=== PATIENT | male | born 1980 | race Caucasian/White ===

== ENCOUNTER 2017-07-25 17:13 | Emergency (ER) ==
[2017-07-25 17:26] VITALS: BP 102/70; TEMP 98.3; BMI 25.0
[2017-07-25] MEDS ORDERED: BENADRYL IM STA (17:30)
[2017-07-25] MEDS ORDERED: DECADRON 4 MG/ML SDV IM STA (17:30)
--- NOTE | 2017-07-25 17:33 | ED.PDOC ---
General ED Provider: Dr. GRETA CIFUENTES Chief Complaint: Rash Stated Complaint: RASH Time Seen by Physician: 17:31 Mode of Arrival: Walk-In Information Source: Patient Primary Care Provider: JAY SINGLETON Nursing and Triage Documentation Reviewed and Agree: Yes (NO S.O.B) Skin Complaint Exam - Skin Rash/Itching Complaint/Exam Onset/Duration: TODAT PRIOR TO ARRIVAL . Symptoms Are: Still present (MILD SEE PHOTOS) Initial Severity: Moderate Current Severity: Mild Location: FACE, CHEST Potential Exposures: Reports: Unknown Aggravating: Reports: None Alleviating: Reports: None Associated Signs and Symptoms: Denies: Difficulty breathing, Fever, Chills Related History: Similar episode Skin Findings: Present: Urticaria Differential Diagnoses: Allergic Reaction Review of Systems - Review Of Systems Constitutional: Reports: No symptoms Eyes: Reports: No symptoms Ears, Nose, Mouth, Throat: Reports: No symptoms Respiratory: Reports: No symptoms Cardiac: Reports: No symptoms GI: Reports: No symptoms : Reports: No symptoms Musculoskeletal: Reports: No symptoms Skin: Reports: Rash Neurological: Reports: No symptoms Endocrine: Reports: No symptoms Hematologic/Lymphatic: Reports: No symptoms All Other Systems: Reviewed and Negative Past Medical History - Past Medical History Previously Healthy: No Endocrine: Reports: None Cardiovascular: Reports: None Respiratory: Reports: None Hematological: Reports: None Gastrointestinal: Reports: None Genitourinary: Reports: None Neuro/Psych: Reports: None Musculoskeletal: Reports: None Cancer: Reports: None - Surgical History General Surgical History: Reports: None - Family History Family History: Reports: None - Social History Smoking Status: Former smoker Hx Substance Use: No Alcohol Screening: None Physical Exam - Physical Exam Appearance: Well-appearing, No pain distress, Well-nourished Eyes: SABIHA, EOMI, Conjunctiva clear ENT: Ears normal, Nose normal, Oropharynx normal Respiratory: Airway patent, Breath sounds clear, Breath sounds equal, Respirations nonlabored Cardiovascular: RRR, Pulses normal, No rub, No murmur GI/: Soft, Nontender, No masses, Bowel sounds normal, No Organomegaly Musculoskeletal: Normal strength, ROM intact, No edema, No calf tenderness Skin: Warm, Dry (DIFFUSE FINE RASH FACE ,CHEST) Neurological: Sensation intact, Motor intact, Reflexes intact, Cranial nerves intact, Alert, Oriented Psychiatric: Affect appropriate, Mood appropriate Critical Care Note - Critical Care Note Total Time (mins): 0 Course - Course Orders, Labs, Meds: Orders Category Date Time Status Dexamethasone 4 mg/ml Inj [Decadron 4 mg/ml Sdv] MEDS 07/25/17 17:30 Stat 4 mg IM ONCE STA Diphenhydramine Inj [Benadryl] MEDS 07/25/17 17:30 Stat 25 mg IM ONCE STA Medications Discontinued Medications Generic Name Dose Route Start Last Admin Trade Name Joeyq PRN Reason Stop Dose Admin Dexamethasone Sodium Phosphate 4 mg 07/25/17 17:30 Decadron 4 Mg/Ml Sdv IM 07/25/17 17:31 ONCE STA Diphenhydramine HCl 25 mg 07/25/17 17:30 Benadryl IM 07/25/17 17:31 ONCE STA Vital Signs: Temp Pulse Resp BP Pulse Ox 07/25/17 17:15 98.3 F 94 H 20 102/70 95 Departure - Departure Time of Disposition: 17:33 Disposition: HOME SELF-CARE Discharge Problem: Pruritic rash Instructions: Allergies (ED), Urticaria (ED) Condition: Good Pt referred to PMD for follow-up: Yes Allergies/Adverse Reactions: Allergies No Known Drug Allergies Adverse Reaction (Verified 07/25/17 17:21) Home Medications: Ambulatory Orders Warfarin Sodium [Coumadin] 5 mg PO DAILY 03/19/14 Atorvastatin Calcium [Lipitor] 10 mg PO BEDTIME 02/05/15
== END 2017-07-25 18:10 | disposition home or self-care (01) ==
LOC: ED 17:13
DX: R21 Rash and other nonspecific skin eruption (principal); L29.9 Pruritus, unspecified
CPT/HCPCS: 96372; 99282

== ENCOUNTER 2018-05-25 18:49 | Emergency (ER) ==
[2018-05-25 18:56] VITALS: BP 117/56; TEMP 98.3; BMI 26.4
[2018-05-25] MEDS ORDERED: TORADOL IM STA (19:13)
[2018-05-25] MEDS ORDERED: CORTISPORIN OTIC SUSP OT ONE (19:16)
--- NOTE | 2018-05-25 19:16 | ED.PDOC ---
General ED Provider: Dr. DELMI PANG Chief Complaint: Earache Stated Complaint: Left ear pain, no drainage. was swimming 2 days ago Time Seen by Physician: 19:14 Mode of Arrival: Walk-In Information Source: Patient Primary Care Provider: JAY SINGLETON Nursing and Triage Documentation Reviewed and Agree: Yes Does patient meet sepsis criteria?: No If yes, has appropriate treatment been initiated?: No System Inflammatory Response Syndrome: Not Applicable Sepsis Protocol: For patient's 13 years and over: Temp is 96.8 and below OR 101 and greater Pulse >90 BPM Resp >20/minute Acutely Altered Mental Status Are patient's symptoms suggestive of a new infection, such as: -Pneumonia -Skin, Soft Tissue -Endocarditis -UTI -Bone, Joint Infection -Implantable Device -Acute Abdominal Infection -Wound Infection -Meningitis -Blood Stream Catheter Infection -Unknown EENT Complaint Exam - Ear Complaint/Exam Symptoms Are: Still present Timing: Constant Initial Severity: Moderate Current Severity: Moderate Aggravating: Reports: None Alleviating: Reports: None Associated Signs and Symptoms: Denies: Ear trauma, Ear swelling, Discharge, Fever, Hearing loss, Bleeding, Sore throat, Headache, URI symptoms, Foreign body sensation, Rash, Pain to external ear, Pain to external face Ear Surgical History: None Vesicles to External Pinna: No Vesicles to Tragus: No TMJ Tenderness: None Mastoid Tenderness: None Tragal Tenderness: None External Canal: Normal Tympanic Membrane: Erythema, Bulging Differential Diagnoses: Otitis Externa, Otitis Media Review of Systems - Review Of Systems Constitutional: Reports: No symptoms Eyes: Reports: No symptoms Ears, Nose, Mouth, Throat: Reports: Ear pain Respiratory: Reports: No symptoms Cardiac: Reports: No symptoms GI: Reports: No symptoms : Reports: No symptoms Musculoskeletal: Reports: No symptoms Skin: Reports: No symptoms Neurological: Reports: No symptoms Endocrine: Reports: No symptoms Hematologic/Lymphatic: Reports: No symptoms All Other Systems: Reviewed and Negative Past Medical History - Past Medical History Previously Healthy: No Endocrine: Reports: None Cardiovascular: Reports: None Respiratory: Reports: None Hematological: Reports: None Gastrointestinal: Reports: None Genitourinary: Reports: None Neuro/Psych: Reports: None Musculoskeletal: Reports: None Cancer: Reports: None - Surgical History General Surgical History: Reports: None - Family History Family History: Reports: None - Social History Smoking Status: Former smoker Hx Substance Use: No Alcohol Screening: None - Immunizations Tetanus Shot up to Date: (unknown) Physical Exam - Physical Exam Appearance: Well-appearing, No pain distress, Well-nourished Eyes: SABIHA, EOMI, Conjunctiva clear ENT: Nose normal, Oropharynx normal Respiratory: Airway patent, Breath sounds clear, Breath sounds equal, Respirations nonlabored Cardiovascular: RRR, Pulses normal, No rub, No murmur GI/: Soft, Nontender, No masses, Bowel sounds normal, No Organomegaly Musculoskeletal: Normal strength, ROM intact, No edema, No calf tenderness Skin: Warm, Dry, Normal color Neurological: Sensation intact, Motor intact, Reflexes intact, Cranial nerves intact, Alert, Oriented Psychiatric: Affect appropriate, Mood appropriate Critical Care Note - Critical Care Note Total Time (mins): 30 Course - Course Orders, Labs, Meds: Orders Category Date Time Status Ketorolac Tromethamine [Toradol] MEDS 05/25/18 19:13 Stat 30 mg IM ONCE STA Vital Signs: Temp Pulse Resp BP Pulse Ox 05/25/18 18:50 98.3 F 83 16 117/56 L 97 Departure - Departure Time of Disposition: 19:20 Disposition: HOME SELF-CARE Discharge Problem: Excess ear wax Qualifiers: Laterality: left Qualified Code(s): H61.22 - Impacted cerumen, left ear Otitis externa Qualifiers: Otitis externa type: swimmer's ear Chronicity: acute Laterality: left Qualified Code(s): H60.332 - Swimmer's ear, left ear Instructions: Otitis Externa (ED) Condition: Stable Pt referred to PMD for follow-up: Yes IPMP verified?: No Additional Instructions: Put ear drops 3 times a day for 5 days Need ear wax removal in 1 week Tylenol prn Prescriptions: Amoxicillin/Potassium Clav [Augmentin 500-125 mg Tab] 1 tab PO Q12HR #20 tablet Allergies/Adverse Reactions: Allergies No Known Drug Allergies Adverse Reaction (Verified 05/25/18 18:56) Home Medications: Ambulatory Orders Warfarin Sodium [Coumadin] 5 mg PO DAILY 03/19/14 Atorvastatin Calcium [Lipitor] 10 mg PO BEDTIME 02/05/15 Amoxicillin/Potassium Clav [Augmentin 500-125 mg Tab] 1 tab PO Q12HR #20 tablet 05/25/18 Disposition Discussed With: Patient
== END 2018-05-25 19:34 | disposition home or self-care (01) ==
LOC: ED 18:49
DX: H92.02 Otalgia, left ear (principal); H61.22 Impacted cerumen, left ear; H60.332 Swimmer's ear, left ear
CPT/HCPCS: 99282

== ENCOUNTER 2018-12-19 19:34 | Emergency (ER) ==
[2018-12-19 19:40] VITALS: BP 131/81; BMI 28.9
--- NOTE | 2018-12-19 20:06 | ED.PDOC ---
General ED Provider: Dr. BETZY BONNER Chief Complaint: Cough Stated Complaint: [place] [facility] [place], tight in the chest SOB fever Time Seen by Physician: 20:00 Mode of Arrival: Walk-In Information Source: Patient Exam Limitations: No limitations Primary Care Provider: JAY SINGLETON Nursing and Triage Documentation Reviewed and Agree: Yes Does patient meet sepsis criteria?: Yes If yes, has appropriate treatment been initiated?: Yes (status changed to non septic after lab.rep,/clinical reval,) System Inflammatory Response Syndrome: Pulse >90 BPM Sepsis Protocol: For patient's 13 years and over: Temp is 96.8 and below OR 101 and greater Pulse >90 BPM Resp >20/minute Acutely Altered Mental Status Are patient's symptoms suggestive of a new infection, such as: -Pneumonia -Skin, Soft Tissue -Endocarditis -UTI -Bone, Joint Infection -Implantable Device -Acute Abdominal Infection -Wound Infection -Meningitis -Blood Stream Catheter Infection -Unknown Respiratory Complaint Exam - Respiratory Complaint/Exam Onset/Duration: few days Symptoms Are: Still present Timing: Intermittent Initial Severity: Mild Current Severity: Mild Location: Throat Character: Reports: Dry cough Aggravating: Reports: None Alleviating: Reports: None Associated Signs and Symptoms: Reports: Fever Related History: Reports: Similar episode History of Healthcare-Acquired Pneumonia: No Related Surgical History: Reports: None Pulmonary Embolism Risk Factors: None Cardiac Risk Factors: Reports: None Pseudomonas Risk Factors: Reports: None Tuberculosis Risk Factors: Reports: None Status Asthmaticus Risk Factors: Reports: None Home Oxygen Use: No Recent Stress Test: No Recent Echo/LV Function: No Current Antibiotic Use: No Current Asthma Medication Use: No Inadequate Respiratory Effort: No Dysphagia Present: No Stridor Present: No JVD Present: No Retractions: Not Present Differential Diagnoses: Unstable Angina, Influenza, Lower Resp. Infection Review of Systems - Review Of Systems Constitutional: Reports: Fever Eyes: Reports: No symptoms Ears, Nose, Mouth, Throat: Reports: No symptoms Respiratory: Reports: No symptoms Cardiac: Reports: No symptoms GI: Reports: No symptoms : Reports: No symptoms Musculoskeletal: Reports: Other Skin: Reports: No symptoms Neurological: Reports: No symptoms Endocrine: Reports: No symptoms Hematologic/Lymphatic: Reports: No symptoms All Other Systems: Reviewed and Negative Past Medical History - Past Medical History Previously Healthy: No Endocrine: Reports: None Cardiovascular: Reports: None Respiratory: Reports: None Hematological: Reports: None Gastrointestinal: Reports: None Genitourinary: Reports: None Neuro/Psych: Reports: None Musculoskeletal: Reports: None Cancer: Reports: None - Surgical History General Surgical History: Reports: None - Family History Family History: Reports: None - Social History Smoking Status: Former smoker Hx Substance Use: No Alcohol Screening: None - Immunizations Tetanus Shot up to Date: Yes Physical Exam - Physical Exam Appearance: Well-appearing Ill-appearing: Mild Pain Distress: None Eyes: SABIHA ENT: Ears normal Respiratory: Airway patent GI/: Soft Musculoskeletal: Limited ROM Skin: Warm Neurological: Sensation intact Re-Evaluation - Re-Evaluation Time of Re-Evaluation: 22:19 (fever subsiding with tylenol and IV fluids) Additional Comments: Fever subsiding with Acetam& fkuyids-Normal WBC,STATUS Issa, to NON-SEPTIC - Re-Evaluation Time of Re-Evaluation: 22:22 Status: Improved Vital Signs Stable: Yes Appearance: NAD Skin: Warm and Dry CV: RRR Additional Comments: Cough non productive,ENT neg, Critical Care Note - Critical Care Note Total Time (mins): 0 Course - Course Hematology/Chemistry: 12/19/18 20:07 12/19/18 20:07 Orders, Labs, Meds: Lab Review 12/19/18 12/19/18 12/19/18 19:57 20:07 20:07 WBC 8.44 RBC 4.34 L Hgb 11.9 L Hct 36.2 L MCV 83.4 MCH 27.4 MCHC 32.9 RDW Coeff of Jennifer 12.9 Plt Count 213 Immature Gran % (Auto) 0.4 Neut % (Auto) 62.7 Lymph % (Auto) 24.4 [place] % (Auto) 11.3 H Eos % (Auto) 1.1 Baso % (Auto) 0.1 Immature Gran # (Auto) 0.0 Neut # (Auto) 5.3 Lymph # (Auto) 2.1 [place] # (Auto) 1.0 Eos # (Auto) 0.1 Baso # (Auto) 0.0 Sodium 138.1 Potassium 3.70 Chloride 97.9 L Carbon Dioxide 29.6 Anion Gap 14.30 BUN 16.5 Creatinine 0.90 Estimated GFR (MDRD) 94.00 BUN/Creatinine Ratio 18.33 Glucose 144.0 H Lactic Acid Calcium 8.95 Total Bilirubin 0.74 AST 80.2 H ALT 124.9 H Alkaline Phosphatase 63.4 Total Protein 8.09 Albumin 4.57 Globulin 3.52 Albumin/Globulin Ratio 1.29 Procalcitonin Infectious Barnwell Assay Influ A Molecular Assay Negative by naat Influ B Molecular Assay Negative by naat 12/19/18 12/19/18 12/19/18 20:07 20:07 20:07 WBC RBC Hgb Hct MCV MCH MCHC RDW Coeff of Jennifer Plt Count Immature Gran % (Auto) Neut % (Auto) Lymph % (Auto) [place] % (Auto) Eos % (Auto) Baso % (Auto) Immature Gran # (Auto) Neut # (Auto) Lymph # (Auto) [place] # (Auto) Eos # (Auto) Baso # (Auto) Sodium Potassium Chloride Carbon Dioxide Anion Gap BUN Creatinine Estimated GFR (MDRD) BUN/Creatinine Ratio Glucose Lactic Acid 1.03 Calcium Total Bilirubin AST ALT Alkaline Phosphatase Total Protein Albumin Globulin Albumin/Globulin Ratio Procalcitonin < 0.05 Infectious [place] Assay Negative Influ A Molecular Assay Influ B Molecular Assay Orders Category Date Time Status EKG-(ED ONLY) Stat CARDIO 12/19/18 19:49 Completed IV [ED IV/MEDIPORT/POWERPORT] .ONCE EMERGENCY 12/19/18 20:07 Active BLOOD CULTURE (ED ONLY) Stat LAB 12/19/18 20:40 Ordered CBC W/ AUTO DIFF Stat LAB 12/19/18 20:07 Completed COMPREHENSIVE METABOLIC PANEL Stat LAB 12/19/18 20:07 Completed FLU A/B MOLECULAR Stat LAB 12/19/18 19:57 Completed LACTIC ACID Stat LAB 12/19/18 20:07 Completed MOLECULAR GROUP A STREP Stat LAB 12/19/18 19:57 Completed MONONUCLOSIS SCREEN Stat LAB 12/19/18 20:07 Completed PROCALCITONIN Stat LAB 12/19/18 20:07 Completed 0.9 % Sodium Chloride [Saline Flush] MEDS 12/19/18 20:07 Ordered 1 syr IVF PRN PRN Acetaminophen [Tylenol] MEDS 12/19/18 20:46 Discontinued 650 mg PO ONCE STA Dextrose 5 %-0.45 % NaCl [Dextrose 5%-1/2Ns IV Solution MEDS 12/19/18 21:39 Active ] 1,000 ml IV BOLUS Sodium Chloride 0.9% [Sodium Chloride] 1,000 ml MEDS 12/19/18 20:08 Discontinued IV BOLUS CHEST, 2 VIEWS PA & LAT Stat RADS 12/19/18 19:49 Completed Medications Generic Name Dose Route Start Last Admin Trade Name Freq PRN Reason Stop Dose Admin Dextrose/Sodium Chloride 1,000 mls @ 1,000 mls/hr 12/19/18 21:39 12/19/18 21: 43 Dextrose 5%-1/2ns Iv Solution IV 12/19/18 22:38 1,000 mls/hr BOLUS STA Administration Sodium Chloride 1 syr 12/19/18 20:07 Saline Flush IVF PRN PRN To flush IV Discontinued Medications Generic Name Dose Route Start Last Admin Trade Name Freq PRN Reason Stop Dose Admin Acetaminophen 650 mg 12/19/18 20:46 12/19/18 20:53 Tylenol PO 12/19/18 20:47 650 mg ONCE STA Administration Sodium Chloride 1,000 mls @ 1,000 mls/hr 12/19/18 20:08 12/19/18 20:24 Sodium Chloride IV 12/19/18 21:07 1,000 mls/hr BOLUS STA Administration Vital Signs: Temp Pulse Resp BP Pulse Ox 12/19/18 21:47 98.8 F 94 H 20 97 12/19/18 21:17 102.3 F H 91 H 12/19/18 19:35 101.7 F H 96 H 20 131/81 96 Departure - Departure Time of Disposition: 22:30 Disposition: HOME SELF-CARE Discharge Problem: Fever Instructions: Analgesic/Antitussive/Decongestant/Expectorant Combination (By mouth) Condition: Good Pt referred to PMD for follow-up: Yes (f/u with PCP of choice within 2 days) IPMP verified?: No Additional Instructions: If not better RV or f/u with PCP Allergies/Adverse Reactions: Allergies No Known Drug Allergies Adverse Reaction (Verified 12/19/18 19:40) Home Medications: Ambulatory Orders Warfarin Sodium [Coumadin] 5 mg PO DAILY 03/19/14 Atorvastatin Calcium [Lipitor] 10 mg PO BEDTIME 02/05/15
[2018-12-19] MEDS ORDERED: SODIUM CHLORIDE 1,000 ML IV STA (20:08)
[2018-12-19] MEDS ORDERED: TYLENOL PO STA (20:46)
--- NOTE | 2018-12-19 21:00 | DI ---
EXAM: Two-view chest HISTORY: Cough shortness of breath COMPARISON: Two-view chest 02/19/2016 FINDINGS: The cardiomediastinal silhouette is normal. The lungs are clear bilaterally. No osseous abnormalities are identified. IMPRESSION: No evidence of active pulmonary disease
[2018-12-19] MEDS ORDERED: DEXTROSE 5%-1/2NS IV SOLUTION 1,000 ML IV STA (21:39)
[2018-12-19 21:48] VITALS: TEMP 98.8
== END 2018-12-19 22:37 | disposition home or self-care (01) ==
LOC: ED 19:34
DX: R05 Cough (principal); R50.9 Fever, unspecified
CPT/HCPCS: 36415; 80053; 83605; 84145; 85025; 86308; 87040; 87502; 87651; 93005; 93010; 96361; 99283